=== PATIENT | male | born 1960 | race American Indian/Alaskan Native ===

== ENCOUNTER 2016-11-20 08:37 | Emergency (ER) | payer MEDICARE ==
[2016-11-20] MEDS ORDERED: TYLENOL PO STA (08:59)
[2016-11-20] MEDS ORDERED: NACL 0.9% 500 ML 500 ML IV ONE (08:59)
[2016-11-20 09:28] LABS: Basophils % (Auto) 0.3 % (0.0-1.8); Hematocrit 40.4 % (35.5-45.6); Hemoglobin 13.3 gm/dl (11.8-15.2); Mean Corpuscular HGB Conc 33 % (32-34); Mean Corpuscular Hemoglobin 28 pg (28-32); Mean Corpuscular Volume 84 fl (84-94); Platelet Count 204 K/mm3 (140-440); Red Blood Count 4.82 M/mm3 (3.65-5.03); Red Cell Distribution Width 15.6 % (13.2-15.2); White Blood Count 11.8 K/mm3 (4.5-11.0)
[2016-11-20 09:47] LABS: INR 1.09 (0.87-1.13)
[2016-11-20 09:49] LABS: Alanine Aminotransferase 12 units/L (7-56); Albumin 3.2 g/dL (3.9-5); Albumin/Globulin Ratio 0.5 %; Alkaline Phosphatase 73 units/L (35-129); Anion Gap 15 mmol/L; BUN/Creatinine Ratio 11.11; Blood Urea Nitrogen 10 mg/dL (9-20); Calcium 8.5 mg/dL (8.4-10.2); Carbon Dioxide 25 mmol/L (22-30); Chloride 97.5 mmol/L (98-107); Glucose 99 mg/dL (75-100); Potassium 4.6 mmol/L (3.6-5.0); Sodium 133 mmol/L (137-145); Total Protein 9.8 g/dL (6.3-8.2)
[2016-11-20] MEDS ORDERED: TESSALON PERLES PO ONE (10:04)
[2016-11-20] MEDS ORDERED: ROCEPHIN/NS 1 GM/50 ML 1 GM/50 ML BAG IV ONE (10:04)
[2016-11-20] MEDS ORDERED: REGLAN IV ONE (10:04)
--- NOTE | 2016-11-20 10:04 | XRay Report ---
AP CHEST: HISTORY: Sepsis There is a subtle airspace opacity in the right infrahilar region which could represent an early infiltrate. The remainder of the lungs are clear. No pleural effusion or pneumothorax. Normal heart and mediastinal structures. IMPRESSION: Questionable early infiltrate at the right lung base.
[2016-11-20] MEDS ORDERED: ZITHROMAX 500 MG in NACL 0.9% 250ML 250 ML IV ONE (10:30)
[2016-11-20 12:06] LABS: Bilirubin,Urine NEG (Negative); Blood,Urine SM (Negative); Ketones,Urine NEG (Negative); Leukocyte Esterase,Urine NEG (Negative); Nitrite,Urine NEG (Negative); Urobilinogen,Urine < 2.0 mg/dL (<2.0); WBC,Urine < 1.0 /HPF (0.0-6.0)
[2016-11-20] MEDS ORDERED: TORADOL IV ONE (12:15)
--- NOTE | 2016-11-20 13:26 | Emergency Department Report ---
ED Fever HPI - General Chief Complaint: Fever Stated Complaint: CP/DIZZY/VOMITING Time Seen by Provider: 11/20/16 09:13 Source: patient Exam Limitations: no limitations - History of Present Illness Initial Comments: 55-year-old male with a past medical history HIV hypertension presents to Hospital complaining of feeling bad since yesterday. Positive cough productive of yellow sputum, fevers, generalized body aches. Vomiting 3 this a.m. No diarrhea. No recent travel or sick contacts. CD4 count unknown by viral load is undetectable and patient is not on empiric Bactrim.` Patient denies shortness of breath or abdominal pain. ED Review of Systems ROS: Stated complaint: CP/DIZZY/VOMITING Other details as noted in HPI Comment: All other systems reviewed and negative Other: Constitutional: as per hpi Eyes: No eye pain visual changes ENT: No ear pain or throat pain Neck: Denies pain Respiratory: as per hpi Cardiovascular: Denies palpitations, syncope GI: Denies abdominal pain, nausea, vomiting, diarrhea : Denies dysuria, urinary frequency, or urgency Musculoskeletal: as per hpi Skin: Denies rash, lesions, erythema Neurologic: Denies headache, numbness, weakness Psychiatric: Denies suicidal ideation, hallucinations y ED Past Medical Hx - Past Medical History Hx Hypertension: Yes Hx HIV: Yes - Surgical History Additional Surgical History: hemorrhoidectomy - Social History Smoking Status: Never Smoker Substance Use Type: None - Medications Home Medications: Home Medications Medication Instructions Recorded Confirmed Last Taken Type Benzonatate [Tessalon Perles] 100 mg PO Q8HR PRN #30 capsule 11/20/16 Unknown Rx Elviteg/Lucy/Emtric/Tenofo Ala 1 each PO DAILY 11/20/16 11/20/16 11/19/16 History [Genvoya (Nf)] Hydrochlorothiazide [HCTZ] 25 mg PO QDAY 11/20/16 11/20/16 11/19/16 History Ibuprofen [Motrin] 800 mg PO Q8HR PRN #30 tablet 11/20/16 Unknown Rx Levofloxacin [Levaquin] 750 mg PO QDAY #5 tablet 11/20/16 Unknown Rx Multivit with Calcium,Iron,Min 1 each PO DAILY 11/20/16 11/20/16 11/19/16 History [Multiple Vitamins For Women] Promethazine [Phenergan TAB] 25 mg PO Q6HR PRN #20 tab 11/20/16 Unknown Rx amLODIPine [Norvasc] 10 mg PO DAILY 11/20/16 11/20/16 11/19/16 History traMADol [Ultram 50 MG tab] 50 mg PO Q6HR PRN #20 tablet 11/20/16 Unknown Rx ED Physical Exam - General Limitations: No Limitations - Other Other exam information: General: No limitations, patient is alert in no acute distress Head exam: Atraumatic, normocephalic Eyes exam: Normal appearance, pupils equal reactive to light, extraocular movements intact ENT: Moist mucous membrane, normal oropharynx Neck exam: Normal inspection, full range of motion, no meningismus nontender Respiratory exam: Crackles at the right base, left clear to auscultation, no wheezing or tachypnea Cardiovascular: Tachycardic regular rhythm. Heart rate increases with sitting up Abdomen: Soft, nondistended, and nontender, with normal bowel sounds, no rebound, or guarding Extremity: Full range of motion normal inspection no deformity Back: Normal Inspection, full range of motion, no tenderness Neurologic: Alert, oriented x3, cranial nerves intact, no motor or sensory deficit Psychiatric: normal affect, normal mood Skin: Warm, dry, intact ED Course Vital Signs 11/20/16 11/20/16 11/20/16 08:55 09:10 10:10 Temperature 102.7 F H Pulse Rate 138 H Respiratory 24 24 20 Rate Blood Pressure 146/91 O2 Sat by Pulse 95 96 Oximetry 11/20/16 11/20/16 11/20/16 10:11 10:13 10:15 Temperature Pulse Rate Respiratory Rate Blood Pressure 138/83 138/83 138/83 O2 Sat by Pulse 92 94 94 Oximetry 11/20/16 11/20/16 11/20/16 10:17 10:19 10:21 Temperature Pulse Rate Respiratory Rate Blood Pressure 138/83 138/83 138/83 O2 Sat by Pulse 93 95 95 Oximetry 11/20/16 11/20/16 11/20/16 10:23 10:25 10:27 Temperature Pulse Rate Respiratory Rate Blood Pressure 138/83 138/83 138/83 O2 Sat by Pulse 95 95 94 Oximetry 11/20/16 11/20/16 11/20/16 10:29 10:31 10:33 Temperature Pulse Rate Respiratory Rate Blood Pressure 138/83 138/83 138/83 O2 Sat by Pulse 95 94 95 Oximetry 11/20/16 11/20/16 11/20/16 10:35 10:37 10:39 Temperature Pulse Rate Respiratory Rate Blood Pressure 138/83 138/83 138/83 O2 Sat by Pulse 95 95 91 Oximetry 11/20/16 11/20/16 11/20/16 10:41 10:43 10:45 Temperature Pulse Rate Respiratory Rate Blood Pressure 138/83 138/83 138/83 O2 Sat by Pulse 94 94 94 Oximetry 11/20/16 11/20/16 11/20/16 10:47 10:49 10:51 Temperature Pulse Rate Respiratory Rate Blood Pressure 138/83 138/83 138/83 O2 Sat by Pulse 93 94 95 Oximetry 11/20/16 11/20/16 11/20/16 10:53 10:55 10:57 Temperature Pulse Rate Respiratory Rate Blood Pressure 138/83 138/83 138/83 O2 Sat by Pulse 95 97 95 Oximetry 11/20/16 11/20/16 11/20/16 10:59 11:00 11:01 Temperature Pulse Rate Respiratory Rate Blood Pressure 128/79 128/79 128/79 O2 Sat by Pulse 95 91 97 Oximetry 11/20/16 11/20/16 11/20/16 11:03 11:05 11:07 Temperature Pulse Rate Respiratory Rate Blood Pressure 128/79 128/79 128/79 O2 Sat by Pulse 97 96 97 Oximetry 11/20/16 11/20/16 11/20/16 11:09 11:11 11:13 Temperature Pulse Rate Respiratory Rate Blood Pressure 128/79 128/79 128/79 O2 Sat by Pulse 95 96 96 Oximetry 11/20/16 11/20/16 11/20/16 11:15 11:17 11:19 Temperature Pulse Rate Respiratory Rate Blood Pressure 128/79 128/79 128/79 O2 Sat by Pulse 96 94 95 Oximetry 11/20/16 11/20/16 11/20/16 11:21 11:23 11:25 Temperature Pulse Rate Respiratory Rate Blood Pressure 128/79 128/79 128/79 O2 Sat by Pulse 93 92 91 Oximetry 11/20/16 11/20/16 11/20/16 11:27 11:29 11:31 Temperature Pulse Rate Respiratory Rate Blood Pressure 128/79 128/79 128/79 O2 Sat by Pulse 95 95 96 Oximetry 11/20/16 11/20/16 11/20/16 11:33 11:35 11:37 Temperature Pulse Rate Respiratory Rate Blood Pressure 128/79 128/79 128/79 O2 Sat by Pulse 94 95 93 Oximetry 11/20/16 11/20/16 11/20/16 11:39 11:41 11:43 Temperature Pulse Rate Respiratory Rate Blood Pressure 128/79 128/79 128/79 O2 Sat by Pulse 95 94 95 Oximetry 11/20/16 11/20/16 11/20/16 11:45 11:47 11:49 Temperature Pulse Rate Respiratory Rate Blood Pressure 128/79 128/79 128/79 O2 Sat by Pulse 93 95 95 Oximetry 11/20/16 11/20/16 11/20/16 11:51 11:53 11:55 Temperature Pulse Rate Respiratory Rate Blood Pressure 128/79 128/79 128/79 O2 Sat by Pulse 93 94 95 Oximetry 11/20/16 11/20/16 11/20/16 11:57 11:59 12:00 Temperature Pulse Rate Respiratory Rate Blood Pressure 128/79 128/79 119/75 O2 Sat by Pulse 94 94 98 Oximetry 11/20/16 11/20/16 11/20/16 12:01 12:03 12:05 Temperature 100.4 F H Pulse Rate Respiratory Rate Blood Pressure 119/75 119/75 119/75 O2 Sat by Pulse 96 95 96 Oximetry 11/20/16 11/20/16 11/20/16 12:07 12:09 12:11 Temperature Pulse Rate Respiratory Rate Blood Pressure 128/79 119/78 128/79 O2 Sat by Pulse 95 96 96 Oximetry 11/20/16 11/20/16 11/20/16 12:13 12:15 12:17 Temperature Pulse Rate Respiratory Rate Blood Pressure 128/79 128/79 128/79 O2 Sat by Pulse 94 94 97 Oximetry 11/20/16 11/20/16 11/20/16 12:19 12:21 12:23 Temperature Pulse Rate Respiratory Rate Blood Pressure 128/79 128/79 128/79 O2 Sat by Pulse 94 94 95 Oximetry 11/20/16 11/20/16 11/20/16 12:25 12:27 12:29 Temperature Pulse Rate Respiratory Rate Blood Pressure 128/79 128/79 128/79 O2 Sat by Pulse 95 95 91 Oximetry 11/20/16 11/20/16 11/20/16 12:31 12:33 12:35 Temperature Pulse Rate Respiratory Rate Blood Pressure 128/79 128/79 128/79 O2 Sat by Pulse 97 96 96 Oximetry 11/20/16 11/20/16 11/20/16 12:37 12:39 12:41 Temperature Pulse Rate Respiratory Rate Blood Pressure 128/79 128/79 128/79 O2 Sat by Pulse 95 94 94 Oximetry 11/20/16 11/20/16 11/20/16 12:43 12:45 12:47 Temperature Pulse Rate Respiratory Rate Blood Pressure 128/79 128/79 128/79 O2 Sat by Pulse 95 91 96 Oximetry 11/20/16 11/20/16 11/20/16 12:49 12:51 12:53 Temperature Pulse Rate Respiratory Rate Blood Pressure 128/79 128/79 128/79 O2 Sat by Pulse 96 96 96 Oximetry 11/20/16 11/20/16 11/20/16 12:55 12:57 12:58 Temperature Pulse Rate Respiratory 20 Rate Blood Pressure 128/79 128/79 O2 Sat by Pulse 95 95 Oximetry 11/20/16 11/20/16 11/20/16 12:59 13:00 13:01 Temperature Pulse Rate Respiratory Rate Blood Pressure 111/75 111/75 111/75 O2 Sat by Pulse 91 96 92 Oximetry 11/20/16 11/20/16 11/20/16 13:03 13:05 13:07 Temperature Pulse Rate Respiratory Rate Blood Pressure 111/75 111/75 111/75 O2 Sat by Pulse 91 90 93 Oximetry 11/20/16 11/20/16 11/20/16 13:09 13:11 13:13 Temperature 99.5 F Pulse Rate Respiratory Rate Blood Pressure 111/75 111/75 111/75 O2 Sat by Pulse 94 93 94 Oximetry 11/20/16 11/20/16 11/20/16 13:15 13:16 13:35 Temperature Pulse Rate 106 H Respiratory 20 Rate Blood Pressure 111/75 111/75 118/81 O2 Sat by Pulse 94 94 95 Oximetry 11/20/16 11/20/16 11/20/16 14:27 14:29 14:31 Temperature Pulse Rate Respiratory Rate Blood Pressure 111/66 111/66 111/66 O2 Sat by Pulse 92 88 Oximetry 11/20/16 11/20/16 11/20/16 14:33 14:35 14:37 Temperature Pulse Rate Respiratory Rate Blood Pressure 111/66 111/66 111/66 O2 Sat by Pulse 93 96 94 Oximetry 11/20/16 11/20/16 11/20/16 14:39 14:41 14:43 Temperature Pulse Rate Respiratory Rate Blood Pressure 111/66 111/66 111/66 O2 Sat by Pulse 96 95 96 Oximetry 11/20/16 11/20/16 11/20/16 14:45 14:47 14:58 Temperature 97.9 F Pulse Rate 99 H Respiratory 18 Rate Blood Pressure 111/66 111/66 111/60 O2 Sat by Pulse 96 96 Oximetry 11/20/16 15:12 Temperature 99 F Pulse Rate 96 H Respiratory Rate Blood Pressure O2 Sat by Pulse Oximetry - Reevaluation(s) Reevaluation #1: 11/20/16 14:30 Hr in the 90's after IVF. ED Medical Decision Making - Lab Data Result diagrams: 11/20/16 09:01 11/20/16 09:01 Lab Results 11/20/16 11/20/16 11/20/16 Range/Units 09:01 09:01 09:01 WBC 11.8 H (4.5-11.0) K/mm3 RBC 4.82 (3.65-5.03) M/mm3 Hgb 13.3 (11.8-15.2) gm/dl Hct 40.4 (35.5-45.6) % MCV 84 (84-94) fl MCH 28 (28-32) pg MCHC 33 (32-34) % RDW 15.6 H (13.2-15.2) % Plt Count 204 (140-440) K/mm3 Lymph % (Auto) 15.9 (13.4-35.0) % [place] % (Auto) 5.0 (0.0-7.3) % Eos % (Auto) 2.0 (0.0-4.3) % Baso % (Auto) 0.3 (0.0-1.8) % Lymph # 1.9 (1.2-5.4) K/mm3 [place] # 0.6 (0.0-0.8) K/mm3 Eos # 0.2 (0.0-0.4) K/mm3 Baso # 0.0 (0.0-0.1) K/mm3 Seg Neutrophils % 76.8 H (40.0-70.0) % Seg Neutrophils # 9.1 H (1.8-7.7) K/mm3 PT 14.0 (12.2-14.9) Sec. INR 1.09 (0.87-1.13) VBG pH (7.320-7.420) Sodium 133 L (137-145) mmol/L Potassium 4.6 (3.6-5.0) mmol/L Chloride 97.5 L (98-107) mmol/L Carbon Dioxide 25 (22-30) mmol/L Anion Gap 15 mmol/L BUN 10 (9-20) mg/dL Creatinine 0.9 (0.8-1.5) mg/dL Estimated GFR > 60 ml/min BUN/Creatinine Ratio 11.11 % Glucose 99 (75-100) mg/dL Lactic Acid (0.7-2.0) mmol/L Calcium 8.5 (8.4-10.2) mg/dL Total Bilirubin 0.50 (0.1-1.2) mg/dL AST 21 (5-40) units/L ALT 12 (7-56) units/L Alkaline Phosphatase 73 (35-129) units/L Total Protein 9.8 H (6.3-8.2) g/dL Albumin 3.2 L (3.9-5) g/dL Albumin/Globulin Ratio 0.5 % Lipase (13-60) units/L Urine Color (Yellow) Urine Turbidity (Clear) Urine pH (5.0-7.0) Ur Specific [place] (1.003-1.030) Urine Protein (Negative) mg/dL Urine Glucose (UA) (Negative) mg/dL Urine Ketones (Negative) mg/dL Urine Blood (Negative) Urine Nitrite (Negative) Urine Bilirubin (Negative) Urine Urobilinogen (<2.0) mg/dL Ur Leukocyte Esterase (Negative) Urine WBC (Auto) (0.0-6.0) /HPF Urine RBC (Auto) (0.0-6.0) /HPF 11/20/16 11/20/16 11/20/16 Range/Units 09:01 09:01 09:01 WBC (4.5-11.0) K/mm3 RBC (3.65-5.03) M/mm3 Hgb (11.8-15.2) gm/dl Hct (35.5-45.6) % MCV (84-94) fl MCH (28-32) pg MCHC (32-34) % RDW (13.2-15.2) % Plt Count (140-440) K/mm3 Lymph % (Auto) (13.4-35.0) % [place] % (Auto) (0.0-7.3) % Eos % (Auto) (0.0-4.3) % Baso % (Auto) (0.0-1.8) % Lymph # (1.2-5.4) K/mm3 [place] # (0.0-0.8) K/mm3 Eos # (0.0-0.4) K/mm3 Baso # (0.0-0.1) K/mm3 Seg Neutrophils % (40.0-70.0) % Seg Neutrophils # (1.8-7.7) K/mm3 PT (12.2-14.9) Sec. INR (0.87-1.13) VBG pH 7.408 (7.320-7.420) Sodium (137-145) mmol/L Potassium (3.6-5.0) mmol/L Chloride (98-107) mmol/L Carbon Dioxide (22-30) mmol/L Anion Gap mmol/L BUN (9-20) mg/dL Creatinine (0.8-1.5) mg/dL Estimated GFR ml/min BUN/Creatinine Ratio % Glucose (75-100) mg/dL Lactic Acid 1.80 (0.7-2.0) mmol/L Calcium (8.4-10.2) mg/dL Total Bilirubin (0.1-1.2) mg/dL AST (5-40) units/L ALT (7-56) units/L Alkaline Phosphatase (35-129) units/L Total Protein (6.3-8.2) g/dL Albumin (3.9-5) g/dL Albumin/Globulin Ratio % Lipase 44 (13-60) units/L Urine Color (Yellow) Urine Turbidity (Clear) Urine pH (5.0-7.0) Ur Specific [place] (1.003-1.030) Urine Protein (Negative) mg/dL Urine Glucose (UA) (Negative) mg/dL Urine Ketones (Negative) mg/dL Urine Blood (Negative) Urine Nitrite (Negative) Urine Bilirubin (Negative) Urine Urobilinogen (<2.0) mg/dL Ur Leukocyte Esterase (Negative) Urine WBC (Auto) (0.0-6.0) /HPF Urine RBC (Auto) (0.0-6.0) /HPF 11/20/16 11/20/16 Range/Units 11:38 12:17 WBC (4.5-11.0) K/mm3 RBC (3.65-5.03) M/mm3 Hgb (11.8-15.2) gm/dl Hct (35.5-45.6) % MCV (84-94) fl MCH (28-32) pg MCHC (32-34) % RDW (13.2-15.2) % Plt Count (140-440) K/mm3 Lymph % (Auto) (13.4-35.0) % [place] % (Auto) (0.0-7.3) % Eos % (Auto) (0.0-4.3) % Baso % (Auto) (0.0-1.8) % Lymph # (1.2-5.4) K/mm3 [place] # (0.0-0.8) K/mm3 Eos # (0.0-0.4) K/mm3 Baso # (0.0-0.1) K/mm3 Seg Neutrophils % (40.0-70.0) % Seg Neutrophils # (1.8-7.7) K/mm3 PT (12.2-14.9) Sec. INR (0.87-1.13) VBG pH (7.320-7.420) Sodium (137-145) mmol/L Potassium (3.6-5.0) mmol/L Chloride (98-107) mmol/L Carbon Dioxide (22-30) mmol/L Anion Gap mmol/L BUN (9-20) mg/dL Creatinine (0.8-1.5) mg/dL Estimated GFR ml/min BUN/Creatinine Ratio % Glucose (75-100) mg/dL Lactic Acid 1.20 (0.7-2.0) mmol/L Calcium (8.4-10.2) mg/dL Total Bilirubin (0.1-1.2) mg/dL AST (5-40) units/L ALT (7-56) units/L Alkaline Phosphatase (35-129) units/L Total Protein (6.3-8.2) g/dL Albumin (3.9-5) g/dL Albumin/Globulin Ratio % Lipase (13-60) units/L Urine Color Yellow (Yellow) Urine Turbidity Clear (Clear) Urine pH 8.0 H (5.0-7.0) Ur Specific [place] 1.014 (1.003-1.030) Urine Protein 100 mg/dl (Negative) mg/dL Urine Glucose (UA) Neg (Negative) mg/dL Urine Ketones Neg (Negative) mg/dL Urine Blood Sm (Negative) Urine Nitrite Neg (Negative) Urine Bilirubin Neg (Negative) Urine Urobilinogen < 2.0 (<2.0) mg/dL Ur Leukocyte Esterase Neg (Negative) Urine WBC (Auto) < 1.0 (0.0-6.0) /HPF Urine RBC (Auto) 5.0 (0.0-6.0) /HPF - EKG Data -: EKG Interpreted by Me (sinus tach rate 128, no stemi) - Radiology Data Radiology results: report reviewed (cxr: Questionable early infilrate in the right lower lobe) - Medical Decision Making Patient is treated for pneumonia. Symptoms improved with Toradol, Tylenol, normal saline, Zofran, Rocephin, and azithromycin. Patient feels better. Stable for discharge and outpatient follow-up - Differential Diagnosis pneumonia, bronchitis, viral syndrome Critical Care Time: No Critical care attestation.: If time is entered above; I have spent that time in minutes in the direct care of this critically ill patient, excluding procedure time. ED Disposition Clinical Impression: Pneumonia, HIV (human immunodeficiency virus infection) Disposition: DC-01 TO HOME OR SELFCARE Is pt being admited?: No Does the pt Need Aspirin: No Condition: Stable Instructions: Community-acquired Pneumonia (ED) Additional Instructions: Take the medication as prescribed. Return if symptoms worsen. Prescriptions: Benzonatate [Tessalon Perles] 100 mg PO Q8HR PRN #30 capsule PRN Reason: Cough Ibuprofen [Motrin] 800 mg PO Q8HR PRN #30 tablet PRN Reason: Pain Levofloxacin [Levaquin] 750 mg PO QDAY #5 tablet Promethazine [Phenergan TAB] 25 mg PO Q6HR PRN #20 tab PRN Reason: Nausea traMADol [Ultram 50 MG tab] 50 mg PO Q6HR PRN #20 tablet PRN Reason: Pain Referrals: PRIMARY CARE,MD [Primary Care Provider] - 3-5 Days Forms: Work/School Release Form(ED) Time of Disposition: 14:58
[2016-11-20] MEDS ORDERED: NACL 0.9% 1000 ML 1,000 ML IV ONE (13:36)
[2016-11-20 15:00] VITALS: BP 111/60
== END 2016-11-20 15:18 | disposition home or self-care (01) ==
LOC: ED 08:37
DX: J18.9 Pneumonia, unspecified organism (principal); B20 Human immunodeficiency virus [HIV] disease; I10 Essential (primary) hypertension
CPT/HCPCS: 36415; 71010; 80053; 81001; 82140; 82805; 83690; 85025; 85610; 87040; 87086; 93005; 93010; 96361; 96365; 96366; 96368; 96375; 99284; J0456; J0696; J1885; J2765; J7030; J7040; J7050

== ENCOUNTER 2019-10-24 09:17 | Emergency (ER) | payer MEDICARE ==
[2019-10-24 09:36] VITALS: BP 120/87
[2019-10-24] MEDS ORDERED: SODIUM CHLORIDE 0.9% 1000 ML 1,000 ML IV ONE (10:30)
--- NOTE | 2019-10-24 10:48 | Emergency Department Report ---
ED General Adult HPI - General Chief complaint: Medical Clearance Stated complaint: DEHYDRATED PUI?: Yes Time Seen by Provider: 10/24/19 10:24 Source: patient Mode of arrival: Ambulatory Limitations: No Limitations - History of Present Illness Initial comments: CC: "I am just dehydrated." HPI: Mr. Mcdowell is a 58-year-old male with history of HIV on ART, hypertension who presents with "dehydration". He has had fever sore throat mild cough. He states he feels "a little dehydrated". No known sick contacts. Treated himself with OTC cold medicine. -: Gradual, days(s) (2) Consistency: constant Improves with: none Worsens with: none Associated Symptoms: other (sore throat, cough) - Related Data Home Medications Medication Instructions Recorded Confirmed Last Taken Elviteg/Lucy/Emtric/Tenofo Ala 1 each PO DAILY 11/20/16 11/20/16 11/19/16 [Genvoya (Nf)] Multivit with Calcium,Iron,Min 1 each PO DAILY 11/20/16 11/20/16 11/19/16 [Multiple Vitamins For Women] amLODIPine [Norvasc] 10 mg PO DAILY 11/20/16 11/20/16 11/19/16 hydroCHLOROthiazide [HCTZ] 25 mg PO QDAY 11/20/16 11/20/16 11/19/16 Previous Rx's Medication Instructions Recorded Last Taken Type Benzonatate [Tessalon Perles] 100 mg PO Q8HR PRN #30 capsule 11/20/16 Unknown Rx Ibuprofen [Motrin] 800 mg PO Q8HR PRN #30 tablet 11/20/16 Unknown Rx Promethazine [Phenergan TAB] 25 mg PO Q6HR PRN #20 tab 11/20/16 Unknown Rx levoFLOXacin [Levaquin] 750 mg PO QDAY #5 tablet 11/20/16 Unknown Rx traMADoL [Ultram 50 MG tab] 50 mg PO Q6HR PRN #20 tablet 11/20/16 Unknown Rx Allergies Allergy/AdvReac Type Severity Reaction Status Date / Time No Known Allergies Allergy Verified 11/20/16 08:55 ED Review of Systems ROS: Stated complaint: DEHYDRATED Other details as noted in HPI Comment: All other systems reviewed and negative Constitutional: malaise ENT: throat pain Respiratory: cough Gastrointestinal: denies: abdominal pain, nausea, vomiting ED Past Medical Hx - Past Medical History Previous Medical History?: Yes Hx Hypertension: Yes Hx HIV: Yes - Surgical History Past Surgical History?: Yes Additional Surgical History: hemorrhoidectomy - Social History Smoking Status: Never Smoker Substance Use Type: None - Medications Home Medications: Home Medications Medication Instructions Recorded Confirmed Last Taken Type Benzonatate [Tessalon Perles] 100 mg PO Q8HR PRN #30 capsule 11/20/16 Unknown Rx Elviteg/Lucy/Emtric/Tenofo Ala 1 each PO DAILY 11/20/16 11/20/16 11/19/16 History [Genvoya (Nf)] Ibuprofen [Motrin] 800 mg PO Q8HR PRN #30 tablet 11/20/16 Unknown Rx Multivit with Calcium,Iron,Min 1 each PO DAILY 11/20/16 11/20/16 11/19/16 History [Multiple Vitamins For Women] Promethazine [Phenergan TAB] 25 mg PO Q6HR PRN #20 tab 11/20/16 Unknown Rx amLODIPine [Norvasc] 10 mg PO DAILY 11/20/16 11/20/16 11/19/16 History hydroCHLOROthiazide [HCTZ] 25 mg PO QDAY 11/20/16 11/20/16 11/19/16 History levoFLOXacin [Levaquin] 750 mg PO QDAY #5 tablet 11/20/16 Unknown Rx traMADoL [Ultram 50 MG tab] 50 mg PO Q6HR PRN #20 tablet 11/20/16 Unknown Rx ED Physical Exam - General Limitations: No Limitations General appearance: alert, in no apparent distress - Head Head exam: Present: atraumatic, normocephalic - Eye Eye exam: Present: normal appearance - ENT ENT exam: Present: mucous membranes moist - Neck Neck exam: Present: normal inspection, full ROM - Respiratory Respiratory exam: Present: normal lung sounds bilaterally. Absent: respiratory distress, wheezes, rales, rhonchi - Cardiovascular Cardiovascular Exam: Present: regular rate, normal rhythm, normal heart sounds. Absent: systolic murmur, diastolic murmur, rubs, gallop - GI/Abdominal GI/Abdominal exam: Present: soft, normal bowel sounds. Absent: distended, tenderness, guarding, rebound - Rectal Rectal exam: Present: deferred - Extremities Exam Extremities exam: Present: normal inspection - Neurological Exam Neurological exam: Present: alert, oriented X3 - Psychiatric Psychiatric exam: Present: normal affect, normal mood - Skin Skin exam: Present: warm, dry, intact, normal color. Absent: rash ED Course Vital Signs 10/24/19 09:36 Temperature 99.0 F Pulse Rate 104 H Respiratory 22 Rate Blood Pressure 120/87 O2 Sat by Pulse 96 Oximetry ED Medical Decision Making - Medical Decision Making Suspected COVID-19 infection. Patient appears well. Patient understands to self isolate self quarantine for 14 days. He also understands to see his personal infectious disease doctor for outpatient COVID-19 testing. Critical care attestation.: If time is entered above; I have spent that time in minutes in the direct care of this critically ill patient, excluding procedure time. ED Disposition Clinical Impression: Suspected COVID-19 virus infection Disposition: DC-01 TO HOME OR SELFCARE Is pt being admited?: No Does the pt Need Aspirin: No Condition: Stable Instructions: COVID-19 Referrals: SAIDA SAUCEDO [Other] - 3-5 Days
== END 2019-10-24 12:53 | disposition home or self-care (01) ==
LOC: ED 09:17
DX: E86.0 Dehydration (principal); R05 Cough; R50.9 Fever, unspecified; I10 Essential (primary) hypertension; Z20.828 Contact with and (suspected) exposure to other viral communicable diseases; Z21 Asymptomatic human immunodeficiency virus [HIV] infection status; Z79.899 Other long term (current) drug therapy
CPT/HCPCS: 96360; 96361; 99282; J7030